=== PATIENT | female | born 1975 | race Caucasian/White ===

== ENCOUNTER 2016-12-29 01:54 | Inpatient (IN) | payer MEDICARE, OTHER ==
[~2016-12-29] VITALS: Ht 160 cm; Wt 69.4 kg
[2016-12-29 03:06] LABS: BUN/CREATININE RATIO 17 (0-10)
[2016-12-29 03:09] LABS: HEMOGLOBIN 16.2 gm/dl (12.3-15.3); RED BLOOD COUNT 5.38 M/UL (4.00-5.10)
[2016-12-29] MEDS ORDERED: ZOFRAN4 MG PO (09:50)
[2016-12-29] MEDS ORDERED: MECLIZINE HCL25 MG PO (09:51)
[2016-12-29] MEDS ORDERED: LEVAQUIN500 MG PO (09:51)
[2016-12-29] MEDS ORDERED: PREDNISONE10 M1 PO (09:52)
[2016-12-30 05:24] LABS: HEMOGLOBIN 14.6 gm/dl (12.3-15.3); RED BLOOD COUNT 4.89 M/UL (4.00-5.10)
[2016-12-30 05:45] LABS: BUN/CREATININE RATIO 18 (0-10)
[2017-01-01] MEDS ORDERED: DILANTIN100 MG PO (09:49)
[2017-01-01] MEDS ORDERED: KEPPRA500 MG PO (20:24)
== END 2017-01-01 21:10 | disposition home or self-care (01) | DRG 149 ==
LOC: ER1 01:54 → ZEROF 08:52 → M/S 08:52
PROVIDERS: Family Medicine; ADMIT Internal Medicine
DX: R42 Dizziness and giddiness (principal); F15.20 Other stimulant dependence, uncomplicated; T42.0X5A Adverse effect of hydantoin derivatives, initial encounter; G40.909 Epilepsy, unspecified, not intractable, without status epilepticus; F17.210 Nicotine dependence, cigarettes, uncomplicated; Z88.0 Allergy status to penicillin; Z88.5 Allergy status to narcotic agent; Z88.8 Allergy status to other drugs, medicaments and biological substances; Z79.899 Other long term (current) drug therapy; Z79.52 Long term (current) use of systemic steroids
CPT/HCPCS: 36415; 70450; 70553; 80048; 80053; 80185; 82550; 82553; 83735; 83874; 84484; 85025; 93005; 99285; A9577; J2550; J7030; J7050

== ENCOUNTER 2020-11-09 20:40 | Emergency (ER) | payer MEDICARE ==
[~2020-11-09 20:40] MED LIST: DILANTIN100 MG PO; KEPPRA500 MG PO; LEVAQUIN500 MG PO; MECLIZINE HCL25 MG PO; PREDNISONE10 M1 PO; ZOFRAN4 MG PO
== END 2020-11-09 21:07 | disposition left against medical advice (07) ==
LOC: ER1 20:40
DX: Z53.21 Procedure and treatment not carried out due to patient leaving prior to being seen by health care provider (principal)